=== PATIENT | female | born 1965 | race Caucasian/White ===

== ENCOUNTER 2019-05-13 23:24 | Observation (INO) ==
[2019-05-14] MEDS: LACTATED RINGERS 1,000 ML IV SCH ×2 (01:35→10:17)
[2019-05-14 02:14] LABS: Basophils % 0.5 % (0.0-0.8); Eosinophils # 0.2 10*3/uL (0.0-0.87); Eosinophils % 1.7 % (0.00-10.9); Hematocrit 42.6 VOL% (35.7-47.0); Immature Granulocytes % 0.2 %; Immature Granulocytes Absolute 0.02 #; Lymphocytes % 34.9 % (21.3-54.2); Mean Corpuscular HGB Conc 32.9 GM/DL (32-36); Mean Corpuscular Volume 84.9 FL (87-102); Mean Platelet Volume 10.2 FL (9.6-12.0); Monocytes % 6.8 % (1.7-12.7); Neutrophils % 55.9 % (38.7-73.9); Platelet Count 226 T/CUMM (130-400); Red Blood Count 5.02 MC/CUMM (3.8-5.5); Red Cell Distribution Width 13.9 % (9.3-17.3); White Blood Count 8.7 T/CUMM (4-12)
[2019-05-14 02:30] LABS: Calcium 8.9 MG/DL (8.5-10.1); Osmolality,Calculated 276.4 MOS/KG (273-304)
[2019-05-14] MEDS ORDERED: POTASSIUM CHLORIDE RIDER 20 MEQ in PREMIX 1 EACH IV SCH (08:00)
[2019-05-14] MEDS ORDERED: POTASSIUM CHLORIDE 20 MEQ TABLET PO PRN (10:16)
[2019-05-14 11:36] VITALS: BP 144/74
[2019-05-14] MEDS ORDERED: NAPROXEN 500 MG TABLET PO PRN (14:43)
== END 2019-05-14 16:47 | disposition home or self-care (01) ==
LOC: EDUNIT# → EDBD → N.ED 23:24 → N.EDINP 05-14 00:55 → INTOOBSV 05-14 00:55 → N.3E 05-14 02:19
PROVIDERS: ADMIT Orthopaedic Surgery; ATTEND Orthopaedic Surgery